=== PATIENT | female | born 1965 | race Asian ===

== ENCOUNTER 2018-09-03 08:23 | Day surgery (SDC) | payer OTHER ==
[2018-09-03] MEDS ORDERED: FENTAnyl 50 MCG/ML VIAL (10:35)
[2018-09-03] MEDS ORDERED: MIDAZOLAM 1 MG/ML 2 ML INJ ×2 (10:35)
== END 2018-09-03 14:48 | disposition home or self-care (01) ==
LOC: GIL 08:23
DX: Z12.11 Encounter for screening for malignant neoplasm of colon (principal); K62.1 Rectal polyp
CPT/HCPCS: 45380; 88305